=== PATIENT | female | born 1960 | race Hispanic/Latino ===

== ENCOUNTER 2019-02-12 06:09 | Day surgery (SDC) | payer MEDICAID ==
[2019-02-11 14:32] VITALS: RESP 18
[2019-02-12 06:43] VITALS: BMI 27.7
[2019-02-12] MEDS ORDERED: Lactated Ringer's 1,000 ML IV ONE ×2 (07:07→11:35)
--- NOTE | 2019-02-12 07:49 | CP.SDSHP ---
Same Day Surgery H & P - History Proposed Procedure: Left distal radius ORIF/carpal tunnel release Pre-Op Diagnosis: Left distal radius fracture - Previous Medical/Surgical History Misc: Anemia Comments: depression - Allergies Allergies: Allergies No Known Allergies Allergy (Verified 02/12/19 06:43) - Physical Exam Vital Signs: Vital Signs 02/12/19 02/12/19 07:04 07:06 Temperature 98.1 F Pulse Rate 60 64 Respiratory 18 Rate Blood Pressure 111/66 O2 Sat by Pulse 99 Oximetry Neuro: WNL Heart: WNL Lungs: WNL (medical clearance Dr. Ramírez on chart) - {Optional Preform as Required} Ortho: Other (splint intact, sensation intact to rad/ulnar/med nerve distrib, +ROM fingers, cap refill < 2 sec) Other Pertinent Findings: [place] [employer]MICAL ENGINEERING patient report reviewed, 02/07 given rx by ER. Patient counseled on the risks of addiction, physical or psychological dependence, and overdose associated with opioid drugs and the danger of taking opioid drugs with alcohol and other central nervous system depressants, and cautioned patient on storage and disposal. Patient Name / ID : ALTHEA JONES / [id number]. Exam Date : 02/07/2019 13:00:13 ( Approved ). Study Comment : Sex / Age : F / 58Y. Creator : Shalom Murillo MD. Dictator : Shalom Murillo MD. Plastics Patternmaker : Police Patrol Officer : Shalom Murillo MD. Approver2 : Report Date : 02/07/2019 13:29:27. My Comment : . Date of service: 02/07/2019. PROCEDURE: Left Wrist Radiographs. . HISTORY: left wrist deformity. COMPARISON: None. TECHNIQUE: 4 views obtained. FINDINGS: BONES: Comminuted transverse distal radial fracture with marked dorsal angulation of the distal fragment and overriding of the fracture fragments. Displaced ulnar styloid process fracture. The radiocarpal articulation appears grossly intact. The distal radioulnar articulation appears disrupted. There is an abnormal relationship of the distal ulna to the carpal bones, with the distal aspect of the ulna ventral and proximal to its normal position. JOINTS: Normal. No dislocation. SOFT TISSUES: Normal. OTHER FINDINGS: None. IMPRESSION: Transverse angulated overriding distal radial fragment with displaced ulnar styloid process fracture. - Impression Impression: 58F fell injured left wrist on 02/07/2019 was seen and splinted at ER, seen in office found to have left distal radius fracture with significant displacement for ORIF and carpal tunnel release Pt. Evaluated Today:Candidate for Anesthesia & Procedure: Yes - Date & Time Date: 02/12/19 Time: 07:56 Short Stay Discharge - Short Stay Discharge Admitting Diagnosis/Reason for Visit: M84.634A/S52.572A Disposition: HOME/ ROUTINE Referrals: FAMILY PROVIDER,NO [Primary Care Provider] -
[2019-02-12] MEDS ORDERED: Thrombin Topical 5,000 Int Units Spray Kit ONE (08:23)
[2019-02-12] MEDS ORDERED: Etomidate 20 mg/10ml Inj IV ONE (08:59)
[2019-02-12] MEDS ORDERED: Succinylcholine Chloride 20 mg/ml Syr (5 ml) IV ONE (08:59)
[2019-02-12] MEDS ORDERED: Rocuronium 10 mg/ml (5 ml) ONE ×2 (08:59→11:15)
[2019-02-12] MEDS ORDERED: Phenylephrine 10 mg/ml Inj ONE (08:59)
[2019-02-12] MEDS ORDERED: Propofol 10 mg/ml Inj (20 ML) ONE (08:59)
[2019-02-12] MEDS ORDERED: Midazolam 2 MG/2 ML VIAL ONE ×2 (09:15→09:16)
[2019-02-12] MEDS ORDERED: Dexamethasone 4 mg/1 ml ONE (10:13)
[2019-02-12] MEDS ORDERED: Sevoflurane - Inhalation Anesthetic Liq (250 ml) ONE (11:03)
[2019-02-12] MEDS ORDERED: Bacitracin Ointment 30 GM TUBE ONE (11:23)
[2019-02-12] MEDS ORDERED: Neostigmine 1:1000 (1 mg/ml) Inj ONE (12:08)
[2019-02-12] MEDS ORDERED: HYDROmorphone 0.5 mg/0.5 ml ISec IVP PRN (12:31)
--- NOTE | 2019-02-12 12:35 | PCM.ANESB4 ---
Infraclavicular Block - Femoral Nerve Block Date of Procedure: 02/12/19 Anesthesiologist: Sekou Pre-Procedure Diagnosis: Left distal radius fracture Post-Procedure Diagnosis: Same Procedure Performed: Brachial Plexus at the Infraclavicular area Left - Procedure Infraclavicular Block: The procedure was explained to the patient that it is for the post-operative pain management. Consent was obtained after a thorough discussion with the patient regarding the benefits and possible complications of local anesthetic block of the brachial plexus at the infraclavicular area. The patient was brought to the operating room and standard monitors were applied. Time-out was held with the circulating nurse to confirm the correct surgery and the appropriate block. After applying oxygen by nasal cannula and administering IV Sedation, patient's head was gently rotated away from the operative ____left____ shoulder and the area medial to the coracoid process and inferior to the clav icle was carefully palpated. The ultrasound transducer was then applied to the skin in the transverse plane and the brachial plexus was visualized surrounding the axillary artery and deep to the pectoralis major and minor muscles. After thorough identification, this area was prepped with Chloraprep and 1 % Lidocaine was injected subcutaneously for topical anesthesia. At this point, a #21 gauge Stimuplex 4-inch needle was inserted cephalad to the ultrasound transducer and inferior to the clavicle in-plane towards the posterior aspect of the axillary artery. Needle advancement was performed carefully under ultrasound visualization. Nerve stimulator was used and twitch of the affected extremity including fingers, hand, wrist and elbow was obtained at current of __0.4___MA. After repeated negative aspiration, __2___cc of __0.5___% ___bupivacaine with 1:200,000 epinephrine was injected and this was followed with __28____ cc of ___0.5____ % ___bupivacaine with 1:200,000 epinephrine . Under ultrasound guidance the local anesthetics were observed surrounding the cords of the brachial plexus. The needle was removed intact and sterile dressing was applied. The patient had stable vital signs, was conscious and in no apparent distress. The patient tolerated the infraclavicular block of the brachial plexus well with stable vital signs was prepared for subsequent surgery.
[2019-02-12] MEDS ORDERED: Lactated Ringer's 1,000 ML IV SCH (12:45)
[2019-02-12] MEDS ORDERED: Oxycodone/Acetaminophen 5/325 mg Tab PO PRN (12:47)
--- NOTE | 2019-02-12 13:26 | PCM.SURG1 ---
Surgeon's Initial Post Op Note - Surgeon's Notes Surgeon: Lincoln [employer] Education Professor: Trish Lackey/ JEREMIE Pino Type of Anesthesia: General Endo Anesthesia Administered By: DR Hailey Marcelo Pre-Operative Diagnosis: Dispalced/comminuted displaced distal radius fx. Carpal tunnel syndrome- postr traumatic Operative Findings: as above. tenosynovitis flexor tendon Post-Operative Diagnosis: as above Operation Performed: ORIF displaced distal radius rfx. release transverse carpall ligam,net. partial flexor tenbosynovectyomy. partial medianj neurolysis. applx volar spliint Specimen/Specimens Removed: synvoium/ epineurium. fx callous Estimated Blood Loss: EBL {In ML}: 15 Blood Products Given: N/A Drains Used: No Drains Post-Op Condition: Fair Date of Surgery/Procedure: 02/12/19 Time of Surgery/Procedure: 10:15 (time in room 9:10)
[2019-02-12 14:15] VITALS: TEMP 98.2
--- NOTE | 2019-02-12 15:01 | RAD ---
Date of service: 02/12/2019 PROCEDURE: Left Wrist Radiographs. HISTORY: s/p ORIF pt in pacu COMPARISON: Fluoroscopy images 02/12/2019 TECHNIQUE: Three views obtained. FINDINGS: BONES: A a plate with screws transfixes a distal radial comminuted fracture. The prior volar apical angulation deformity is no longer seen anatomical alignment of the fracture fragments is now suggested. Hardware appears intact. Additional nondisplaced ulnar styloid base fracture noted. JOINTS: No dislocation noted. SOFT TISSUES: Swelling and volar and radial sided skin sutures present. Some casting material also noted. OTHER FINDINGS: None. IMPRESSION: Status post open reduction internal fixation of a comminuted distal radial fracture. Ulnar styloid nondisplaced fracture noted.
[2019-02-12 15:57] VITALS: BP 110/64; PULSE 81; O2SAT 99
--- NOTE | 2019-02-13 14:26 | RAD ---
Date of service: 02/12/2019 PROCEDURE: Fluoroscopic assistance in excess of 1 hour. HISTORY: LEFT WRIST COMPARISON: None TECHNIQUE: Standard protocol for this study/examination. FINDINGS: Total exam DLP: 0.20 (mGy). IMPRESSION: Total fluoroscopic time (continuous mode) utilized during the procedure 17.1 seconds. Submitted images from the current procedure: 4.0
--- NOTE | 2019-02-13 15:01 | OP ---
PROCEDURE DATE: 02/12/2019 PREOPERATIVE DIAGNOSES: 1. Displaced comminuted distal radius fracture, metaphyseal. 2. Posttraumatic carpal tunnel syndrome. OPERATIVE FINDINGS: 1. Displaced comminuted distal radius fracture without an intra-articular component. 2. Carpal tunnel syndrome, posttraumatic. 3. Tenosynovitis of the flexor tendon. 4. Hematoma. POSTOPERATIVE DIAGNOSES: 1. Displaced comminuted distal radius fracture metaphyseal. 2. Posttraumatic carpal tunnel syndrome. OPERATION PERFORMED: 1. Open reduction internal fixation of displaced distal radius fracture. 2. Release of transverse carpal ligament. 3. Partial flexor tenosynovectomy. 4. Partial median neurolysis. 5. Application of volar splint. 6. Positioning of fluoroscope, interpretation of video images. SURGEON: Sunny Stark MD CERTIFIED ART THERAPIST: Trish Mart PA-C SECOND PLUMBER APPRENTICE: Jody Estes, Certified Registered Nursing Main Line Station Engineer. ANESTHESIA: General endotracheal anesthesia. ANESTHESIOLOGIST: Андрей Sapp MD BLOOD LOSS: 15 mL. BLOOD PRODUCTS GIVEN: None. DRAINS: None. POSTOPERATIVE CONDITION: Stable. TIME OF PROCEDURE: 10:15. TIME IN THE ROOM: 09:10. OPERATIVE INDICATION: Amanda Alberts is a 58-year-old woman who presents with pain and deformity in the wrist after having sustained a fall. The patient presents with pain and restricted range of motion of the distal radius. Pros, cons, risks and benefits of surgical approach were discussed, the possibility of mechanical failure, infection, thromboembolic disease, possibility of secondary or tertiary surgery was discussed. The patient no longer withstand the discomfort. DESCRIPTION OF PROCEDURE: After having obtained informed consent, after having identified the side, site and procedure and a critical pause/time-out, left wrist was the correct wrist, after having obtained informed consent, after thoroughly discussing the pros, cons, risks and benefits of the surgical option, after having discussed alternative procedures, the possibility of mechanical failure, infection, thromboembolic disease, possibility of secondary or tertiary surgery was discussed. The patient no longer withstand the discomfort. OPERATIVE PROCEDURE: After having obtained informed consent in the above fashion, after having identified the side, site and procedure and a critical pause/time-out, after the satisfactory induction of the anesthetic, the patient identified as Amanda Alberts in the supine position with all bony prominences well padded, the left upper extremity was prepped and free draped in usual fashion for upper extremity surgery. The operation was performed under eyeglass magnification. After having identified the side, site and procedure and a critical pause/time-out, after the satisfactory induction of the anesthetic, the patient identified as Estrellita Alberts in supine position, the left upper extremity was prepped and free draped in usual fashion for upper extremity surgery. The upper extremity was exsanguinated using a 4-inch Esmarch bandage, the tourniquet which had been applied was inflated to 250 mmHg. The operation was performed under loupe magnification. An incision was described in the median palmar crease deviating distally at the distal crease, deviating back proximally and in the distal forearm in the interval between the palmaris longus and the flexor carpi radialis tendon. The skin incision was carried down through the skin and subcutaneous tissue. The flap was identified and elevated. The palmar aponeurosis was identified. The entire extent of the transverse carpal ligament was identified. The incision was carried down through the skin and subcutaneous tissue. Stay sutures were placed on the radial flap as well as the ulnar aspect. This having been accomplished, the entire extent of the transverse carpal ligament was identified. The entire extent of the transverse carpal ligament was divided using #15 blade. Great care was taken to avoid injury to the underlying structures, the motor branch of the median nerve and the superficial sensory branch of the median nerve. This having been accomplished, the fracture site was identified, Sams retractors were placed. The pronator quadratus muscle was identified and was carefully divided. Great care was taken to preserve the anterior interosseous branch of the median nerve as well. The fracture site was identified. The hematoma was evacuated. There was found to be an extensive tenosynovectomy with hematoma and tenosynovitis. An extensive partial flexor tenosynovectomy was accomplished. The median nerve was identified. The median nerve partial median epineurolysis is accomplished. The epineurium having been excised, the median nerve was then snared with a Rand drain. This having been accomplished, the fracture was identified. With traction on the fracture, a quarter-inch straight elevator was placed into the fracture site and the fracture was reduced. The fracture was reduced and held in the Cotton-Loder position and the volar locking plate was applied to the distal radius. Each sequential drill hole was drilled. After the central hole, the plate was drilled and the plate was positioned. Each sequential drill hole was drilled, sounded and the appropriate size screw was placed. Verification of position was offered on AP and lateral image intensification views. The position was found to be anatomic. There was found to be no compromise of the wrist joint. The wound was thoroughly irrigated. Closures in layers with interrupted Vicryl, jacky and nylon for the palmar aspect of the wound. Mayo Mello compression dressing and a volar splint was applied. Postoperative x-rays reveal excellent position of the construct. Sunny Stark MD
== END 2019-02-12 15:45 | disposition home or self-care (01) ==
LOC: H.OPSURG 06:09
PROVIDERS: ATTEND Orthopaedic Surgery
DX: M84.63 Pathological fracture in other disease, ulna and radius (principal); S52.572A Other intraarticular fracture of lower end of left radius, initial encounter for closed fracture; G56.01 Carpal tunnel syndrome, right upper limb; W19.XXXA Unspecified fall, initial encounter; D64.9 Anemia, unspecified
CPT/HCPCS: 25607; 25609; 64721; 73110; 88304; 88305; C1713; J0690; J1100; J2001; J2250; J2370; J2405; J2704; J2710; J2765; J3010; J7030; J7120